=== PATIENT | female | born 1975 | race Hispanic/Latino ===

== ENCOUNTER 2025-09-14 20:56 | Emergency (ER) | payer OTHER ==
[~2025-09-14] VITALS: Ht 160 cm; Wt 66.3 kg
[2025-09-14] MEDS ORDERED: ALBUTEROL/IPRATROPIUM 3 ML NEB INH ONE (21:45)
[2025-09-14 22:51] LABS: INFLUENZA B NAA NEGATIVE (NEGATIVE); RESPIRATORY SYNCYTIAL VIR NAA NEGATIVE (NEGATIVE)
[2025-09-15] MEDS ORDERED: LORazepam 1 MG HOME.PACK PO ONE (00:15)
[2025-09-15] MEDS ORDERED: ALBUTEROL SULFATE 8 GM HOME.PACK INH ONE (00:15)
[2025-09-15 00:54] VITALS: BP 115/75
== END 2025-09-15 00:54 | disposition home or self-care (01) ==
LOC: ED 20:56
PROVIDERS: Family Medicine
DX: F41.9 Anxiety disorder, unspecified (principal); J45.909 Unspecified asthma, uncomplicated
CPT/HCPCS: 71045; 87502; 94640; 99285-25; U0002